=== PATIENT | male | born 1950 | race Caucasian/White ===

== ENCOUNTER 2022-05-06 10:01 | Outpatient (CLI) | payer MEDICARE, SELFPAY ==
[2022-05-06 17:42] LABS: Creatinine Urine 115.6 mg/dL
[2022-05-06 17:46] LABS: Microalbumin Creatinine Ratio 0 mg/g (0-30); Microalbumin Urine 1 mg/dL
[2022-05-06 17:47] LABS: Albumin* 4.6 g/dL (3.3-5.0)
[2022-05-06 17:48] LABS: Chloride* 89 mmol/L (96-114); Potassium* 5.4 mmol/L (3.6-5.1); Sodium* 132 mmol/L (135-149)
[2022-05-06 17:50] LABS: Aspartate Amino Transferase* 33 U/L (12-35); Bilirubin Total* 0.8 mg/dL (0.1-1.5); Blood Urea Nitrogen* 22 mg/dL (7-30); Carbon Dioxide* 30 mmol/L (20-32); Cholesterol* 166 mg/dL (90-199); Creatinine* 1.3 mg/dL (0.5-1.5); Estimated Glomerular Filt Rate 58 ml/min; Glucose* 163 mg/dL (60-115); Total Protein* 7.7 g/dL (6.0-8.3)
[2022-05-06 17:51] LABS: Alanine Aminotransferase* 31 U/L (4-50); Alkaline Phosphatase* 62 U/L (40-150); Calcium* 10.2 mg/dL (8.4-10.6); HDL Cholesterol* 60 mg/dL (>=40); LDL Cholesterol Calculated 76 mg/dL (<100); Triglycerides* 148 mg/dL (40-149)
[2022-05-06 18:22] LABS: PSA Screen* 4.58 ng/mL (0.10-4.00)
== END 2022-05-06 10:02 | disposition home or self-care (01) ==
PROVIDERS: PCP Family Medicine; Visit Provider Family Medicine
DX: D64.9 Anemia, unspecified (principal); E11.9 Type 2 diabetes mellitus without complications; E78.5 Hyperlipidemia, unspecified; E87.5 Hyperkalemia; I10 Essential (primary) hypertension
CPT/HCPCS: 80053; 80061; 82043; 82570; 82728; 84153

== ENCOUNTER 2022-06-03 08:12 | Outpatient (CLI) | payer MEDICARE, SELFPAY ==
[2022-06-03 13:38] LABS: Creatinine Urine 92.7 mg/dL
[2022-06-03 13:45] LABS: Microalbumin Creatinine Ratio 10 mg/g (0-30); Microalbumin Urine 1 mg/dL
== END 2022-06-03 08:13 | disposition home or self-care (01) ==
LOC: LKVREF 08:14
PROVIDERS: PCP Family Medicine; Visit Provider Family Medicine
DX: Z00.00 Encounter for general adult medical examination without abnormal findings (principal); E11.9 Type 2 diabetes mellitus without complications; D64.9 Anemia, unspecified; E78.5 Hyperlipidemia, unspecified; E87.5 Hyperkalemia; I10 Essential (primary) hypertension
CPT/HCPCS: 82043; 82570

== ENCOUNTER 2023-09-29 09:03 | Outpatient (CLI) | payer MEDICARE, SELFPAY | END 2023-09-29 09:04 | disposition home or self-care (01) | LOC: NFLDREF 09-30 05:49 | PROVIDERS: PCP Family Medicine; Referring Provider Family Medicine; Visit Provider Family Medicine | DX: I10 Essential (primary) hypertension (principal); E11.9 Type 2 diabetes mellitus without complications; E78.5 Hyperlipidemia, unspecified; E87.5 Hyperkalemia; N40.1 Benign prostatic hyperplasia with lower urinary tract symptoms; R35.1 Nocturia; R97.20 Elevated prostate specific antigen [PSA]; Z79.84 Long term (current) use of oral hypoglycemic drugs | CPT/HCPCS: 80053; 80061; 82043; 82570 ==

== ENCOUNTER 2025-02-14 09:13 | Outpatient (CLI) | payer MEDICARE, BC, SELFPAY | END 2025-02-14 09:14 | disposition home or self-care (01) | PROVIDERS: PCP Family Medicine; Visit Provider Family Medicine | DX: D64.9 Anemia, unspecified (principal); E78.00 Pure hypercholesterolemia, unspecified | CPT/HCPCS: 80053; 80061; 82043; 82570; 82607; 82728; 83540 ==

== ENCOUNTER 2025-02-15 13:37 | Outpatient (CLI) | payer MEDICARE, BC, SELFPAY | END 2025-02-15 13:38 | disposition home or self-care (01) | LOC: NFLDREF 02-18 11:13 | PROVIDERS: PCP Family Medicine; Referring Provider Family Medicine; Visit Provider Family Medicine | DX: E87.1 Hypo-osmolality and hyponatremia (principal) | CPT/HCPCS: 84295 ==

== ENCOUNTER 2025-02-22 10:22 | Outpatient (CLI) | payer MEDICARE, BC, SELFPAY | END 2025-02-22 10:23 | disposition home or self-care (01) | LOC: LKVREF 10:23 | PROVIDERS: PCP Family Medicine; Visit Provider Family Medicine | DX: E87.1 Hypo-osmolality and hyponatremia (principal) | CPT/HCPCS: 82043; 82570; 84300 ==

== ENCOUNTER 2025-03-12 10:45 | Outpatient (CLI) | payer MEDICARE, BC, SELFPAY | END 2025-03-12 10:46 | disposition home or self-care (01) | LOC: NFLDREF 03-16 02:13 | PROVIDERS: PCP Family Medicine; Referring Provider Family Medicine; Visit Provider Family Medicine | DX: E87.1 Hypo-osmolality and hyponatremia (principal); D64.9 Anemia, unspecified; I10 Essential (primary) hypertension; E11.9 Type 2 diabetes mellitus without complications | CPT/HCPCS: 83935 ==

== ENCOUNTER 2025-03-25 10:30 | Outpatient (CLI) | payer MEDICARE, BC, SELFPAY | END 2025-03-25 10:31 | disposition home or self-care (01) | LOC: NFLDREF 03-26 22:53 | PROVIDERS: PCP Family Medicine; Referring Provider Family Medicine; Visit Provider Family Medicine | DX: E87.1 Hypo-osmolality and hyponatremia (principal) | CPT/HCPCS: 80053 ==

== ENCOUNTER 2025-04-02 10:22 | Outpatient (CLI) | payer MEDICARE, BC, SELFPAY | END 2025-04-02 10:23 | disposition home or self-care (01) | LOC: NFLDREF 04-04 15:05 | PROVIDERS: PCP Family Medicine; Referring Provider Family Medicine; Visit Provider Family Medicine | DX: E87.1 Hypo-osmolality and hyponatremia (principal) | CPT/HCPCS: 80048 ==

== ENCOUNTER 2025-04-11 09:23 | Outpatient (CLI) | payer MEDICARE, BC, SELFPAY ==
--- NOTE | 2025-04-24 13:31 | ONC.NURNOTE ---
Patient was referred to medical oncology. Requested biopsy of lung be completed prior to seeing. Hemaglobin has been trending down. Patient is scheduled at [place] for PET, PFT, Labs, and Pulm Onc on 05/15/2025. Patient scheduled to see [facility] on 05/28/2025 following these tests and probable biopsy. This information was relayed to both patient and his son, Jose as patient request. Will review information with Medical Oncology next week to be sure that this is appropriate timing. Prior to completing call with the patient, he was instructed to contact his PCP if he notes rapid heartrate, SOB, or increased fatigue with activity. He does note some SOB upon awaking in the AM, this resolves as the day progresses. He is working with his PCP with this.
== END 2025-04-11 09:24 | disposition home or self-care (01) ==
LOC: NFLDREF 04-16 15:08
PROVIDERS: PCP Family Medicine; Referring Provider Family Medicine; Visit Provider Family Medicine
DX: E87.1 Hypo-osmolality and hyponatremia (principal); D64.9 Anemia, unspecified
CPT/HCPCS: 80048

== ENCOUNTER 2025-04-17 10:48 | Outpatient (CLI) | payer MEDICARE, BC, SELFPAY ==
--- NOTE | 2025-04-17 11:00 | CRLHL7_ITS ---
For Patients: As a result of the Century Cures Act, medical imaging exams and procedure reports are released immediately into your electronic medical record. You may view this report before your referring provider. If you have questions, please contact your health care provider. Indication: IRREGULAR LABS, HYPO-OSMOLALITY. HYPONATREMIA. SOME LOWER CP Technique: Noncontrast CT chest Please note that all CT scans at this facility use dose modulation, iterative reconstruction, and/or weight-based dosing when appropriate to reduce radiation dose to as low as reasonably achievable. Comparison: None Findings: Interlobular septal thickening noted within the left lower lobe and left upper lobe with associated bronchiectasis. Similar findings are present to a lesser extent scattered throughout the right lung. Dense masslike opacity in the posterior right lower lobe with associated calcifications. Pleural calcifications noted in the right anterior lung. Small bilateral pleural effusions which are likely loculated. Cardiomegaly. Atherosclerotic changes. Visualized thyroid within normal limits. Upper limits of normal mediastinal lymph nodes. Upper abdomen is unremarkable. Degenerative joint disease of both shoulders. No vertebral body compression fracture. Old right-sided fracture deformities of the ribcage. Emphysematous changes noted particularly in the right upper lobe. Impression: Pulmonary fibrosis most prominent within the lingula and left lower lobe. Masslike density with calcifications within the right lower lobe posteriorly measuring up to 4.1 cm. Associated pleural calcifications noted in the anterior right lung along with a right pleural effusion. 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 Small left pleural effusion. Cardiomegaly. Upper limits of normal mediastinal lymph nodes. Please note that all CT scans at this facility use dose modulation, iterative reconstruction, and/or weight-based dosing when appropriate to reduce radiation dose to as low as reasonably achievable. Dictated by Chadwick Beth MD @ 04/17/2025 12:09:15 PM (Electronically Signed)
== END 2025-04-17 10:49 | disposition home or self-care (01) ==
LOC: CT 10:50
PROVIDERS: PCP Family Medicine; Visit Provider Family Medicine
DX: E87.1 Hypo-osmolality and hyponatremia (principal); J90 Pleural effusion, not elsewhere classified; I51.7 Cardiomegaly; F17.200 Nicotine dependence, unspecified, uncomplicated; I10 Essential (primary) hypertension
CPT/HCPCS: 71250

== ENCOUNTER 2025-07-18 14:09 | Outpatient (CLI) | payer MEDICARE, BC, SELFPAY ==
--- NOTE | 2025-08-13 09:43 | W.PM.SLEEP ---
Sleep Study Details Details Interpreting Provider: Shamir Date of Sleep Study: 07/18/25 Sleep Study Details: STUDY TYPE:? Home unattended ? BMI:? 24.39 ORDERING PROVIDER:? Shamir INDICATION:? Concern for sleep apnea ? SLEEP SUMMARY:? 324 minutes monitored RESPIRATORY SUMMARY:? AHI 63.2 per rule 1A, 60.6 per CMS guideline Low oxygen 70 27.3% of study oxygen less than 90% Snoring 78.7% PERIODIC LIMB MOVEMENTS OF SLEEP:? Not recorded CARDIAC:? Range 49-85, mean 69.1 beats per minute IMPRESSION:? Severe obstructive sleep apnea with significant hypo oxygenation RECOMMENDATION: CPAP or bilevel would be the favor treatment modalities.
== END 2025-07-18 14:10 | disposition home or self-care (01) ==
LOC: SLEEP 14:12
PROVIDERS: PCP Family Medicine; Visit Provider Family Medicine
DX: G47.33 Obstructive sleep apnea (adult) (pediatric) (principal)
CPT/HCPCS: 95806